=== PATIENT | male | born 1990 | race Caucasian/White ===

== ENCOUNTER 2021-12-18 09:18 | Outpatient (CLI) | payer OTHER ==
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
[2021-12-18 10:12] VITALS: BP 112/70
== END 2021-12-18 09:19 | disposition home or self-care (01) ==
LOC: SC 09:18
PROVIDERS: ATTEND Nurse Practitioner Family
DX: R06.83 Snoring (principal); G47.8 Other sleep disorders; G47.10 Hypersomnia, unspecified; R53.83 Other fatigue; F17.290 Nicotine dependence, other tobacco product, uncomplicated
CPT/HCPCS: 99203; 99212

== ENCOUNTER 2022-01-18 19:47 | Outpatient (CLI) | payer OTHER | END 2022-01-18 19:48 | disposition home or self-care (01) | LOC: SC 19:47 | PROVIDERS: ATTEND Nurse Practitioner Family | DX: R06.83 Snoring (principal); G47.8 Other sleep disorders; G47.10 Hypersomnia, unspecified; R53.83 Other fatigue | CPT/HCPCS: 95810 ==

== ENCOUNTER 2022-02-18 11:33 | Outpatient (CLI) | payer OTHER ==
[2022-02-18 12:30] VITALS: BP 118/70
--- NOTE | 2022-02-18 12:30 | SLEEP CARE CONSULTATION ---
Information from patient questionnaire entered by Mona Madrigal. I have reviewed and concur with the information entered by Mona Madrigal. This document represents the service I personally performed and the decisions made by , Hermelinda Piedra ARNP. History of Present Illness Service Date and Time: 02/18/2022 1133 Initial [place] Sleepiness Scale score: 11 (12/17/21) Current [place] Sleepiness Scale score: 12 (02/18/22) Additional HPI information: ONIEL MERRITT returns for follow up and results of the recently performed polysomnography. The patient was informed of the following findings: No significant sleep disordered breathing with an average AHI of 0.8 and jayson oxygen saturation of 90%. I explained the pathophysiology behind obstructive sleep apnea. Patient does not have sleep apnea and was advised how weight gain could increase the risk of developing sleep apnea in the future. Patient has light snoring. Snoring can be reduced by weight loss. Weight loss is best achieved with diet consult. Patient instructed to contact PCP for referral. Snoring can also be treated with an oral appliance from a dentist. Advised to check insurance coverage. In addition, an ENT evaluation can be do to see if other treatment is indicated. Patient counseled not drink alcohol less than 4 hours before bedtime as it can increase snoring and apnea. Patient was cautioned about risks of drowsy driving until sleepiness symptoms resolve. Sleep Study - Results Type of Sleep Study: Polysomnography (COMPLETED 01/18/22) Prior sleep studies: No Polysomnography/Home Sleep Study results: IMPRESSION: The quality of the study is good. The patient had normal sleep efficiency. The sleep architecture was normal as well. Respiratory monitoring showed no significant sleep disordered breathing obstructive sleep apnea-hypopnea (AHI = 0.8) associated with frequent arousals, oxyhemoglobin desaturation and no significant hypoxia (jayson oxygen saturation of 90%). The patient slept adequately in supine position (supine AHI = 0.3; nonsupine = 1.13). Snore was light in intensity. There was no significant periodic leg movement of sleep. Cardiac rhythm was normal sinus rhythm without significant arrhythmia. No abnormal behavior (parasomnia) observed during the night. Allergies and Home Medications Drug allergies reviewed: Yes (NKDA) Home medication list reviewed: Yes (no changes) Review of Systems Review of systems same as previous: Yes (no changes) Physical Exam Vital signs obtained and entered by: MONA Melendez MA Blood Pressure: 118/70 (left arm) Cuff size: regular Heart Rate: 66 O2 Saturation: 96 Height: 5 ft 9.5 in Weight: 158 lb 6.4 oz Body Mass Index: 23.0 BMI Classification: Normal Impression and Plan 1. Snoring but no significant sleep disordered breathing. Patient advised that often weight loss will reduce snoring as well as apnea risk. An oral appliance can also be used for snoring. This would require a dental consultation. Patient cautioned not to use other online appliances as can cause bite issues. A list of accredited dentists in [facility] and one local dentist who makes oral appliances is available in the office. Patient is advised to check if insurance will cover. An ENT consult can also be helpful to determine if any other treatment is an option. 2. Insomnia, unspecified. Insomnia is generally caused by an irregular sleep schedule, spending too much time in bed, napping, caffeine, electronics, lack of a relaxing bedtime ritual and clock watching. Other factors can include anxiety/depression, pain, medications, and obstructive sleep apnea. Patient is unable to sleep more than 2-4 hours during the week. On the weekends, he will sometimes go to sleep Wednesday night and sleep about 12-14 hours through Wednesday. He sleeps really hard when he finally goes to sleep. He does have anxiety that interferes with sleep. The alarm clock should be set and the face covered to prevent clock watching if awakened during the night. Knowing the time can cause anxiety and increase alertness and thinking about sleep time and preparation for the next day. Instead if awakened after sleep, the patient is to position for comfort or use bathroom and return to sleep. If unable to go to sleep in an estimated 20 minutes of more, it is advised to leave the bedroom and engage in a quiet activity until sleepy enough to return to bed. If unable to sleep due to things on the mind, it is recommended to write out the concerns or list to do as a release then return to a quiet activity until sleepy enough to return to bed. This is to be repeated as often as necessary to associate the bed with sleep and not frustration to get to sleep. [facility] How to Sleep Better pamphlet given and reviewed. A sleep diary will be completed for the next 2 weeks to assist implementation of recommendations and for further evaluation of sleep concerns. * 2 week sleep diary filled out by patient * Avoid alcohol consumption near bedtime * The patient is cautioned about driving until sleepiness is completely resolved. * Return 1-2 months for follow up on insomnia. Visit Type: In Office Time Spent with Patient (minutes): 23 Provider Statement: I spent 100% of the Face to Face Visit with the patient with greater than 50% spent counseling the patient and coordination of care.
== END 2022-02-18 11:34 | disposition home or self-care (01) ==
LOC: SC 11:33
PROVIDERS: ATTEND Nurse Practitioner Family
DX: R06.83 Snoring (principal); G47.00 Insomnia, unspecified
CPT/HCPCS: 99212; 99213

== ENCOUNTER 2022-03-30 13:21 | Outpatient (CLI) | payer OTHER ==
[2022-03-30 19:04] VITALS: BP 102/68
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
== END 2022-03-30 13:22 | disposition home or self-care (01) ==
LOC: SC 13:21
PROVIDERS: ATTEND Internal Medicine Pulmonary Disease
DX: F51.04 Psychophysiologic insomnia (principal); G47.20 Circadian rhythm sleep disorder, unspecified type; F41.9 Anxiety disorder, unspecified
CPT/HCPCS: 99212